=== PATIENT | male | born 1940 | race Hispanic/Latino ===

== ENCOUNTER 2019-06-02 10:03 | Inpatient (IN) | payer MEDICARE ==
[~2019-06-02] VITALS: Ht 172.7 cm; Wt 93.5 kg
[2019-06-02] MEDS ORDERED: IBUPROFEN400 MG PO (10:09)
[2019-06-02] MEDS ORDERED: BACTRIM DS TAB1 EACH PO (10:09)
[2019-06-02] MEDS ORDERED: FLOMAX0.4 MG PO (10:09)
[2019-06-02] MEDS ORDERED: SODIUM CHLORIDE 0.9% 1000ML 1,000 ML IV STA (10:25)
[2019-06-02] MEDS ORDERED: PANTOPRAZOLE 40 MG 10ML VIAL IV STA (10:25)
[2019-06-02] MEDS ORDERED: ONDANSETRON HCL INJ 2MG/ML 2ML 2 MG/ML VIAL IV STA (10:25)
[2019-06-02] MEDS ORDERED: PIPER-TAZ 3.375 GM 50 ML IV ONE (10:45)
[2019-06-02] MEDS ORDERED: CEFTRIAXONE SOD 1 GM/NS 50 ML 50 ML IV ONE (10:45)
[2019-06-02 11:14] LABS: CLARITY,URINE CLEAR (CLEAR); COLOR,URINE YELLOW (YELLOW)
[2019-06-02 11:15] LABS: BILIRUBIN,URINE 1+ (NEGATIVE); KETONES,URINE NEGATIVE (NEGATIVE); LEUKOCYTE ESTERASE ,URINE SMALL (NEGATIVE); NITRITE,URINE NEGATIVE (NEGATIVE); PROTEIN,URINE DIPSTICK 1+ (NEGATIVE); URINE UROBILINOGEN 0.2 mg/dL (0.2 - 1)
[2019-06-02 11:22] LABS: BASOPHILS # (AUTO) 0.1 (0.0-0.1); BASOPHILS % 0.6 % (0.0-1.0); EOSINOPHILS # (AUTO) 0.1 (0.0-0.4); EOSINOPHILS % 1.7 % (0.0-6.0); HEMATOCRIT 39.8 % (38.2-49.6); LYMPHOCYTES # (AUTO) 0.9 (1.0-3.2); LYMPHOCYTES % 11.7 % (18.0-39.1); MEAN CORPUSCULAR HEMOGLOBIN 28.6 pg (28-32); MEAN CORPUSCULAR HGB CONC 35.2 g/dL (31-35); MEAN CORPUSCULAR VOLUME 81.4 fL (81-99); MONOCYTES # (AUTO) 0.7 (0.2-0.8); MONOCYTES % 8.5 % (4.4-11.3); NEUTROPHILS # (AUTO) 5.9 (2.1-6.9); NEUTROPHILS % 76.2 % (38.7-80.0); PLATELET COUNT 154 x10e3/uL (140-360); RED BLOOD COUNT 4.89 x10e6/uL (4.3-5.7); RED CELL DISTRIBUTION WIDTH 14.2 % (11.7-14.4)
[2019-06-02 11:32] LABS: EPITHELIAL CELLS,URINE FEW /LPF; RBC,URINE 0-5 /HPF (0-5)
[2019-06-02 11:35] LABS: INR 1.09; PROTHROMBIN TIME 14.8 seconds (11.9-14.5)
[2019-06-02 11:36] LABS: BACTERIA,URINE MODERATE /HPF; WBC,URINE (MAN) >50 /HPF (0-5)
[2019-06-02 11:41] LABS: ALANINE AMINOTRANSFERASE 32 IU/L (0-55); ALBUMIN 3.3 g/dL (3.5-5.0); ALBUMIN/GLOBULIN RATIO 0.8 (0.8-2.0); ALKALINE PHOSPHATASE 98 IU/L (40-150); BLOOD UREA NITROGEN 11 mg/dL (7-26); BUN/CREATININE RATIO 11 (6-25); CALCIUM 8.9 mg/dL (8.4-10.2); CARBON DIOXIDE 17 mmol/L (22-29); CHLORIDE 95 mmol/L (98-107); CREATINE KINASE 33 IU/L (30-200); EST GLOMERULAR FILTRATION RATE > 60 ML/MIN (60-); GLUCOSE 181 mg/dL (74-118); LIPASE 117 U/L (8-78); MAGNESIUM 1.4 MG/DL (1.3-2.1); SODIUM 127 mmol/L (136-145)
--- NOTE | 2019-06-02 12:07 | Diagnostic Imaging Report ---
Testicular ultrasound, 06/02/2019. History: Right testicular pain and swelling. Comparison: None available. Discussion: Evaluation of the scrotum was performed in the transverse and longitudinal planes. Color Doppler and spectral wave form analysis was performed bilaterally. The testes are normal in size and echogenicity bilaterally, measuring 3.3 x 2.0 x 2.1 cm on the right and 3.1 x 2.0 x 2.9 cm on the left. There is no evidence of a testicular mass. Normal and symmetrical flow is present within both testes. Large hydrocele is present on the right with diffuse low-level internal echoes. Small hydrocele is present on the left. There is no evidence of a varicocele. The epididymi are normal bilaterally. IMPRESSION: Large right and small left hydroceles. Normal appearance of the testes. Signed by: Kevin Santos on 06/02/2019 12:04 PM
--- NOTE | 2019-06-02 12:22 | Diagnostic Imaging Report ---
Chest, 1 view, 06/02/2019. History: Flulike symptoms. Comparison: None available. Findings: There is poor inspiration. The cardiomediastinal silhouette and pulmonary vasculature are within normal limits for a portable exam. There is no focal consolidation or pleural effusion. Linear opacities are present at the lung bases. There are no acute osseous or soft tissue abnormalities. Impression: Bibasilar atelectasis. Signed by: Kevin Santos on 06/02/2019 12:19 PM
[2019-06-02] MEDS ORDERED: ONDANSETRON HCL INJ 2MG/ML 2ML 2 MG/ML VIAL IV PRN (12:30)
[2019-06-02] MEDS ORDERED: SODIUM CHLORIDE 0.9% 1000ML 1,000 ML IV ONE (12:30)
[2019-06-02 13:32] LABS: EOSINOPHILS % (MANUAL) 1 % (0-7); LYMPHOCYTES % (MANUAL) 10 % (19-48); MONOCYTES % (MANUAL) 7 % (3.4-9.0); NEUTROPHILS % (MANUAL) 82 % (40-74)
--- NOTE | 2019-06-02 13:35 | NUR ---
FM/PT UPDATED PLAN OF CARE SEVERAL TIMES THROUGHOUT STAY. PT ASST TWICE WITH URINATION/URINAL. PT/FM WANTED WATER, WHEN BROUGHT, PT WAS EATING FOOD TRAY DAUGHTER BROUGHT HIM. 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 PT HAS HAD NO COMPLAINT OF NAUSEA OR VOMITING SINCE ARRIVAL TO ER.
--- OUTSIDE RECORDS SUMMARY | 2019-06-02 13:36 | XMS REPORT ---
Author Author [facility] Address Unknown Phone Unavailable Care Team Providers Care Broadcast Operations Manager Name Role Phone Ashley ANDRADE Unavailable Unavailable Problems This patient has no known problems. Allergies, Adverse Reactions, Alerts This patient has no known allergies or adverse reactions. Medications This patient has no known medications. Results Test Description Test Time Test Comments Text Results Atomic Results Result Comments CHEST SINGLE (PORTABLE) 2019-06-02 12:18:00 [place] [address] Patient Name: HUBERT RUSS MR #: [id number] : 1940 Age/Sex: 78/M Req #: [id number] Adm Physician: Ordered by: RENE ANDRADE MD Report #: [id number] Location: ER Room/Bed: Procedure: [id number] DX/CHEST SINGLE (PORTABLE) Exam Date: 06/02/19 Exam Time: 1124 REPORT STATUS: Signed Chest, 1 view, 06/02/2019. History: Flulike symptoms. Comparison: None available. Findings: There is poor inspiration. The cardiomediastinal silhouette and pulmonary vasculature are within normal limits for a portable exam. There is no focal consolidation or pleural effusion. Linear opacities are present at the lung bases. There are no acute osseous or soft tissue abnormalities. Impression: Bibasilar atelectasis. Signed by: Rojas Santos on 06/02/2019 12:19 PM Dictated By: ROJAS SANTOS MD 1219 Transcribed By: CHARLEY on 06/02/19 1219 COPY TO: RENE ANDRADE MD US TESTICULAR DOPPLER LTD 2019-06-02 12:02:00 [facility] [address] [place] [address] Patient Name: HUBERT RUSS MR #: [id number] : 1940 Age/Sex: 78/M Req #: [id number] Adm Physician: Ordered by: RENE ANDRADE MD Report #: [id number] Location: ER Room/Bed: Procedure: [id number] US/US TESTICULAR DOPPLER LTD Exam Date: 06/02/19 Exam Time: 1049 REPORT STATUS: Signed Testicular ultrasound, 06/02/2019. History: Right testicular pain and swelling. Comparison: None available. Discussion: Evaluation of the scrotum was performed in the transverse and longitudinal planes. Color Doppler and spectral wave form analysis was performed bilaterally. The testes are normal in size and echogenicity bilaterally, measuring 3.3 x 2.0 x 2.1 cm on the right and 3.1 x 2.0 x 2.9 cm on the left. There is no evidence of a testicular mass. Normal and symmetrical flow is present within both testes. Large hydrocele is present on the right with diffuse low-level internal echoes. Small hydrocele is present on the left. There is no evidence of a varicocele. The epididymi are normal bilaterally. IMPRESSION: Large right and small left hydroceles. Normal appearance of the testes. Signed by: Rojas Santos on 06/02/2019 12:04 PM Dictated By: ROJAS SANTOS MD 1204 Transcribed By: CHARLEY on 06/02/19 1204 COPY TO: RENE ANDRADE MD
[2019-06-02 14:51] VITALS: BP 192/91
[2019-06-02 15:30] VITALS: BP 192/91
[2019-06-02 15:34] VITALS: BP 192/91
[2019-06-02] MEDS ORDERED: PIPERACILLIN/TAZO 2.25 GM 50 ML IV SCH (18:00)
--- NOTE | 2019-06-02 19:11 | NUR ---
bedside shift report is complete. patient is resting comfortably in the bed. bed is in the lowest position and call light is within reach.
[2019-06-02 19:50] VITALS: BP 129/74
[2019-06-02 20:19] VITALS: BP 129/74
[2019-06-02] MEDS: PIPERACILLIN/TAZO 2.25 GM 50 ML IV SCH (20:52)
[2019-06-02 23:35] VITALS: BP 115/76
[2019-06-03] VITALS (7 sets, daily range): BP systolic 96–132; BP diastolic 50–73
[2019-06-03] MEDS: PIPERACILLIN/TAZO 2.25 GM 50 ML IV SCH ×3 (05:12→20:56)
--- NOTE | 2019-06-03 06:49 | NUR ---
patient is resting comfortably in bed. bed is in lowest position and call light is within reach.
[2019-06-03 07:23] LABS: BASOPHILS # (AUTO) 0.1 (0.0-0.1); BASOPHILS % 0.6 % (0.0-1.0); EOSINOPHILS # (AUTO) 0.1 (0.0-0.4); EOSINOPHILS % 0.6 % (0.0-6.0); HEMATOCRIT 36.4 % (38.2-49.6); HEMOGLOBIN 12.5 g/dL (14.0-18.0); LYMPHOCYTES # (AUTO) 1.9 (1.0-3.2); LYMPHOCYTES % 19.2 % (18.0-39.1); MEAN CORPUSCULAR HEMOGLOBIN 28.7 pg (28-32); MEAN CORPUSCULAR HGB CONC 34.3 g/dL (31-35); MEAN CORPUSCULAR VOLUME 83.5 fL (81-99); MONOCYTES # (AUTO) 1.1 (0.2-0.8); MONOCYTES % 10.9 % (4.4-11.3); NEUTROPHILS # (AUTO) 6.7 (2.1-6.9); PLATELET COUNT 156 x10e3/uL (140-360); RED BLOOD COUNT 4.36 x10e6/uL (4.3-5.7); RED CELL DISTRIBUTION WIDTH 14.5 % (11.7-14.4)
--- NOTE | 2019-06-03 07:23 | NUR ---
PATIENT IN BED RESTING WITH EYES CLOSED, NO DISTRESS NOTED. IV FLUID INFUSING ORDERED. BED IN LOWER POSITION, CALL LIGHT AT REACH. FAMILY MEMBER AT BED SIDE.
[2019-06-03 07:35] LABS: ALANINE AMINOTRANSFERASE 29 IU/L (0-55); ALBUMIN 2.9 g/dL (3.5-5.0); ALBUMIN/GLOBULIN RATIO 0.8 (0.8-2.0); ALKALINE PHOSPHATASE 79 IU/L (40-150); ANION GAP 14.6 mmol/L (8-16); BLOOD UREA NITROGEN 9 mg/dL (7-26); BUN/CREATININE RATIO 11 (6-25); CALCIUM 8.4 mg/dL (8.4-10.2); CARBON DIOXIDE 20 mmol/L (22-29); CHLORIDE 96 mmol/L (98-107); EST GLOMERULAR FILTRATION RATE > 60 ML/MIN (60-); GLUCOSE 136 mg/dL (74-118); POTASSIUM 3.6 mmol/L (3.5-5.1); SODIUM 127 mmol/L (136-145)
--- NOTE | 2019-06-03 11:23 | NUR ---
PATIENT NOTED WITH ELEVATED TEMPERATURE, MD NOTIFIED, NEW ORDER RECEIVED.
[2019-06-03] MEDS: ACETAMINOPHEN 325 MG TAB PO PRN ×2 (11:30→20:56)
--- NOTE | 2019-06-03 15:05 | NUR ---
MD IN TO SEE PATIENT. NOTIFIED OF ELEVATED TEMPERATURE, NEW ORDER RECEIVED.
--- NOTE | 2019-06-03 16:30 | NUR ---
PATIENT SITTING UP IN BED TALKING TO FAMILY MEMBER VISITING. SWELLING REMAINS TO SCROTUM, ELEVATED , DIAPER DRY. BED IN LOWER POSITION, CALL LIGHT AT REACH.
--- NOTE | 2019-06-03 19:11 | NUR ---
received report from day nurse. bedside shift report is complete. patient is resting in bed. bed is in lowest position and call light is within reach. will continue to monitor patient.
[2019-06-04] VITALS (7 sets, daily range): BP systolic 104–119; BP diastolic 55–63
[2019-06-04] MEDS: PIPERACILLIN/TAZO 2.25 GM 50 ML IV SCH ×3 (05:47→20:41)
--- NOTE | 2019-06-04 06:31 | NUR ---
patient is resting in bed. bed is in lowest position and call carrera is within reach.
[2019-06-04] MEDS ORDERED: HYDRALAZINE HCL 20 MG/ML VIAL IV PRN (07:00)
[2019-06-04] MEDS ORDERED: HYDROCODONE/APAP 5MG-325MG TAB PO PRN (07:00)
[2019-06-04 07:04] LABS: BASOPHILS % 0.4 % (0.0-1.0); EOSINOPHILS # (AUTO) 0.4 (0.0-0.4); EOSINOPHILS % 3.6 % (0.0-6.0); HEMOGLOBIN 12.7 g/dL (14.0-18.0); LYMPHOCYTES # (AUTO) 2.2 (1.0-3.2); LYMPHOCYTES % 21.5 % (18.0-39.1); MEAN CORPUSCULAR HGB CONC 34.3 g/dL (31-35); MEAN CORPUSCULAR VOLUME 84.5 fL (81-99); MONOCYTES # (AUTO) 0.9 (0.2-0.8); MONOCYTES % 9.2 % (4.4-11.3); NEUTROPHILS # (AUTO) 6.6 (2.1-6.9); NEUTROPHILS % 64.6 % (38.7-80.0); PLATELET COUNT 154 x10e3/uL (140-360); RED BLOOD COUNT 4.38 x10e6/uL (4.3-5.7); RED CELL DISTRIBUTION WIDTH 14.5 % (11.7-14.4)
--- NOTE | 2019-06-04 07:15 | NUR ---
PATIENT IN BED RESTING WITH HEAD OF BED ELEVATED, NO DISTRESS NOTED. REDNESS AND SWELLING REMAINS TO SCROTUM, ELEVATED. BED IN LOWER POSITION, CALL LIGHT AT REACH.
[2019-06-04 07:24] LABS: ANION GAP 13.8 mmol/L (8-16); BLOOD UREA NITROGEN 8 mg/dL (7-26); BUN/CREATININE RATIO 11 (6-25); CALCIUM 8.4 mg/dL (8.4-10.2); CARBON DIOXIDE 22 mmol/L (22-29); CHLORIDE 98 mmol/L (98-107); CREATININE, SERUM 0.73 mg/dL (0.72-1.25); EST GLOMERULAR FILTRATION RATE > 60 ML/MIN (60-); GLUCOSE 124 mg/dL (74-118); POTASSIUM 3.8 mmol/L (3.5-5.1); SODIUM 130 mmol/L (136-145)
--- NOTE | 2019-06-04 15:33 | NUR ---
PATIENT IN BED WATCHING TV, NO COMPLAIN VOICED. CALL LIGHT AT REACH, FAMILY AT BED SIDE.
[2019-06-04] MEDS ORDERED: SODIUM CHLORIDE 0.9% 250ML 250 ML ONE (19:14)
[2019-06-04] MEDS: ACETAMINOPHEN 325 MG TAB PO PRN (19:25)
[2019-06-05] VITALS (7 sets, daily range): BP systolic 105–122; BP diastolic 58–66
[2019-06-05 04:39] LABS: BASOPHILS # (AUTO) 0.1 (0.0-0.1); BASOPHILS % 0.8 % (0.0-1.0); EOSINOPHILS # (AUTO) 0.5 (0.0-0.4); EOSINOPHILS % 5.5 % (0.0-6.0); HEMATOCRIT 37.7 % (38.2-49.6); LYMPHOCYTES # (AUTO) 2.5 (1.0-3.2); LYMPHOCYTES % 28.8 % (18.0-39.1); MEAN CORPUSCULAR HEMOGLOBIN 28.9 pg (28-32); MEAN CORPUSCULAR HGB CONC 34.5 g/dL (31-35); MEAN CORPUSCULAR VOLUME 83.8 fL (81-99); MONOCYTES # (AUTO) 0.8 (0.2-0.8); MONOCYTES % 8.9 % (4.4-11.3); NEUTROPHILS # (AUTO) 4.8 (2.1-6.9); PLATELET COUNT 174 x10e3/uL (140-360); RED CELL DISTRIBUTION WIDTH 14.3 % (11.7-14.4)
[2019-06-05 04:55] LABS: ANION GAP 15.7 mmol/L (8-16); BLOOD UREA NITROGEN 6 mg/dL (7-26); BUN/CREATININE RATIO 9 (6-25); CALCIUM 8.5 mg/dL (8.4-10.2); CARBON DIOXIDE 20 mmol/L (22-29); CHLORIDE 104 mmol/L (98-107); CREATININE, SERUM 0.67 mg/dL (0.72-1.25); EST GLOMERULAR FILTRATION RATE > 60 ML/MIN (60-); GLUCOSE 127 mg/dL (74-118); MAGNESIUM 1.9 MG/DL (1.3-2.1); POTASSIUM 3.7 mmol/L (3.5-5.1); SODIUM 136 mmol/L (136-145)
[2019-06-05] MEDS: PIPERACILLIN/TAZO 2.25 GM 50 ML IV SCH ×3 (06:09→21:03)
--- NOTE | 2019-06-05 07:03 | NUR ---
Bedside report and waling rounds completed with oncoming nurse. Patient in bed resting with call light within reach. No issues or distress noted.
--- NOTE | 2019-06-05 07:10 | NUR ---
PATIENT ASSISTED WITH URINAL, VOIDED 200CC OF CLEAR YELLOW URINE. REDNESS AND SWELLING TO SCROTUM, ELEVATED. BED IN LOWER POSITION, CALL LIGHT AT REACH.
--- NOTE | 2019-06-05 11:09 | NUR ---
PATIENT AMBULATED IN ROOM WITH PHYSICAL THERAPY, NO DISTRESS NOTED. BACK IN BED WITH CALL LIGHT AT REACH.
--- NOTE | 2019-06-05 13:44 | NUR ---
Discontinuing skilled PT services since patient is Mod I in functional mobility. Thank you. Addendum: 06/05/19 at 1345 by Edgardo evans PT Amended: Links added.
--- NOTE | 2019-06-05 15:20 | NUR ---
PATIENT ASSISTED WITH SHOWER, LINENS CHANGED. SITTING IN CHAIR TALKING TO FAMILY MEMBERS VISITING. CALL LIGHT AT REACH.
--- NOTE | 2019-06-05 19:00 | NUR ---
Bedside report and rounds completed. Patient in bed with family at bedside with call light within reach. No issues or concerns. Will continue to monitor closely.
[2019-06-06 00:05] VITALS: BP 115/58
[2019-06-06 05:34] VITALS: BP 106/56
[2019-06-06 06:06] LABS: BASOPHILS # (AUTO) 0.1 (0.0-0.1); BASOPHILS % 0.9 % (0.0-1.0); EOSINOPHILS # (AUTO) 0.4 (0.0-0.4); EOSINOPHILS % 5.9 % (0.0-6.0); HEMATOCRIT 38.6 % (38.2-49.6); HEMOGLOBIN 12.8 g/dL (14.0-18.0); LYMPHOCYTES # (AUTO) 2.5 (1.0-3.2); LYMPHOCYTES % 33.8 % (18.0-39.1); MEAN CORPUSCULAR HEMOGLOBIN 28.5 pg (28-32); MEAN CORPUSCULAR HGB CONC 33.2 g/dL (31-35); MONOCYTES # (AUTO) 0.7 (0.2-0.8); MONOCYTES % 8.7 % (4.4-11.3); NEUTROPHILS # (AUTO) 3.7 (2.1-6.9); NEUTROPHILS % 49.8 % (38.7-80.0); PLATELET COUNT 185 x10e3/uL (140-360); RED BLOOD COUNT 4.49 x10e6/uL (4.3-5.7); RED CELL DISTRIBUTION WIDTH 14.3 % (11.7-14.4)
[2019-06-06 06:31] LABS: ANION GAP 14.9 mmol/L (8-16); BLOOD UREA NITROGEN 7 mg/dL (7-26); BUN/CREATININE RATIO 10 (6-25); CALCIUM 8.6 mg/dL (8.4-10.2); CARBON DIOXIDE 23 mmol/L (22-29); CHLORIDE 103 mmol/L (98-107); CREATININE, SERUM 0.68 mg/dL (0.72-1.25); EST GLOMERULAR FILTRATION RATE > 60 ML/MIN (60-); GLUCOSE 121 mg/dL (74-118); MAGNESIUM 1.8 MG/DL (1.3-2.1); POTASSIUM 3.9 mmol/L (3.5-5.1); SODIUM 137 mmol/L (136-145)
[2019-06-06] MEDS: PIPERACILLIN/TAZO 2.25 GM 50 ML IV SCH (06:35)
--- NOTE | 2019-06-06 07:00 | NUR ---
Bedside report and rounds completed with oncoming nurse. Patient in bed resting, no issues or concerns. Call light within reach.
[2019-06-06 07:55] VITALS: BP 121/68
[2019-06-06 08:00] VITALS: BP 121/68
--- NOTE | 2019-06-06 10:40 | NUR ---
IMM LETTER EXPLAINED TO PT AND FAMILY. PT AND FAMILY VERBALIZED UNDERSTANDING. IMM LETTER SIGNED. COPY TO PT AND COPY TO CHART.
[2019-06-06] MEDS ORDERED: TYLENOL WITH C1 EACH PO (11:38)
[2019-06-06] MEDS ORDERED: LEVAQUIN500 MG PO (11:38)
[2019-06-06] MEDS ORDERED: ONDANSETRON HCL 4 MG ORAL DISINTEGRATING TAB PO PRN (15:45)
--- NOTE | 2019-06-07 03:58 | Discharge Summary ---
CONSULTING PHYSICIAN: Luan Reynolds MD, urologist. HOSPITAL COURSE: This is a 78-year-old male who got admitted with complaints of testicular pain. On arrival to the ER, there is no fever or chills reported. His lab review showed sodium of 127 for which he received IV fluids. The patient also received IV Zosyn. His urine culture is negative. The patient got consultation with urologist and got evaluated. Currently cleared for discharge on Levaquin for 14 days and Tylenol No. 3 for pain as needed. LABORATORY DATA: Labs from 06/06/2019, sodium 137, potassium 3.9, chloride 103, CO2 of 23, BUN 7, creatinine 0.68, glucose 121, WBC 7.8, hemoglobin 12.8, hematocrit 38.6, platelets 185. MEDICATIONS: He is going home on Levaquin for 14 days and Tylenol No. 3 for as needed for pain. PHYSICAL EXAMINATION: VITAL SIGNS: Temperature is 96.1, heart rate is 76, blood pressure is 121/68, respiratory rate is 20, and oxygen saturation is 96% on room air. GENERAL: No acute distress. NECK: Supple. HEENT: Moist mucous membranes. LUNGS: Clear to auscultation. CARDIOVASCULAR: Regular rate and rhythm. ABDOMEN: Soft and nontender. EXTREMITIES: With no edema. NEUROLOGICAL: Nonfocal. DIAGNOSES: 1. Right epididymo-orchitis. FOLLOWUP: 1. Follow up primary care physician in 1-2 weeks. 2. Follow up with Urology in 1-2 weeks. Dictated by Caprice Davalos NP MD NAYELI Ortiz/MALINDA /[id number]
--- NOTE | 2019-06-07 07:48 | Discharge Summary ---
CONSULTING PHYSICIAN: Luan Reynolds MD, urologist. CHIEF COMPLAINT: Hypernatremia, UTI, hydrocele, epididymo-orchitis. HOSPITAL COURSE: This is a 78-year-old male who got admitted with complaints of testicular pain DICTATION ENDS HERE Dictated by Caprice Davalos, SHIRRING TENDER MD NAYELI Ortiz/MALINDA /[id number]
== END 2019-06-06 15:34 | disposition home or self-care (01) | DRG 728 ==
LOC: ER 13:25 → ERHOLD 13:34 → OBSVTOIN 14:48 → MED/SURG3 14:49
PROVIDERS: ADMIT Internal Medicine; ATTEND Internal Medicine
DX: N45.3 Epididymo-orchitis (principal); E87.1 Hypo-osmolality and hyponatremia; N39.0 Urinary tract infection, site not specified; E66.9 Obesity, unspecified; Z68.31 Body mass index [BMI] 31.0-31.9, adult; N43.3 Hydrocele, unspecified; D64.9 Anemia, unspecified
CPT/HCPCS: 36415; 71045; 76870; 80048; 80053; 81001; 82550; 82553; 82948; 83690; 83735; 84484; 85025; 85610; 85730; 87040; 87086; 87400; 93005; 93976; 99285; J2405; J2543; J7030; J7050

== ENCOUNTER 2019-06-09 11:02 | Inpatient (IN) | payer MEDICARE ==
[~2019-06-09] VITALS: Ht 175.3 cm; Wt 96.1 kg
[~2019-06-09 11:02] MED LIST: BACTRIM DS TAB1 EACH PO; FLOMAX0.4 MG PO; IBUPROFEN400 MG PO; LEVAQUIN500 MG PO; TYLENOL WITH C1 EACH PO
--- OUTSIDE RECORDS SUMMARY | 2019-06-09 11:05 | XMS REPORT ---
Author Author [facility] Address Unknown Phone Unavailable Care Team Providers Care Nuclear Medicine Officer Name Role Phone Ashley ANDRADE Unavailable Unavailable Problems This patient has no known problems. Allergies, Adverse Reactions, Alerts This patient has no known allergies or adverse reactions. Medications This patient has no known medications. Encounters Start Date/Time End Date/Time Encounter Type Admission Type [facility]ending [facility] Care Department Encounter ID 2019-05-24 19:09:00 2019-05-24 19:09:00 Emergency E [facility] [id number] 2018-12-09 18:49:00 2018-12-09 18:49:00 Emergency E [facility] [id number] Results Test Description Test Time Test Comments Text Results Atomic Results Result Comments CHEST SINGLE (PORTABLE) 2019-06-02 12:18:00 [place] [address] Patient Name: HUBERT RUSS MR #: [id number] : 1940 Age/Sex: 78/M Req #: [id number] Adm Physician: Ordered by: RENE ANDRADE MD Report #: [id number] Location: ER Room/Bed: Procedure: [id number] DX/CHEST SINGLE (PORTABLE) Exam Date: 06/02/19 Exam [...] 12:19 PM Dictated By: ROJAS SANTOS MD 121 Transcribed By: CHARLEY on 06/02/19 1219 COPY TO: RENE ANDRADE MD US TESTICULAR DOPPLER LTD 2019-06-02 12:02:00 [place] [address] Patient Name: HUBERT RUSS MR #: [id number] : 1940 Age/Sex: 78/M Req #: [id number] Adm Physician: Ordered by: RENE ANDRADE MD Report #: [id number] Location: ER Room/Bed: Procedure: [id number] US/US TESTICULAR DOPPLER LTD Exam Date: 06/02/19 [...] 12:04 PM Dictated By: ROJAS SANTOS MD 120 Transcribed By: CHARLEY on 06/02/191203 COPY TO: RENE ANDRADE MD
[2019-06-09] MEDS ORDERED: SODIUM CHLORIDE 0.9% 500ML 500 ML IV ONE (11:45)
[2019-06-09] MEDS ORDERED: ONDANSETRON HCL INJ 2MG/ML 2ML 2 MG/ML VIAL IV STA (12:00)
[2019-06-09] MEDS ORDERED: MORPHINE SULFATE 2 MG/ML SYR 1ML IV STA (12:00)
[2019-06-09] MEDS ORDERED: PIPER-TAZ 3.375 GM 50 ML IV SCH (12:00)
[2019-06-09 12:24] LABS: BASOPHILS % 0.3 % (0.0-1.0); EOSINOPHILS % 0.3 % (0.0-6.0); HEMATOCRIT 38.1 % (38.2-49.6); LYMPHOCYTES # (AUTO) 0.8 (1.0-3.2); LYMPHOCYTES % 5.5 % (18.0-39.1); MEAN CORPUSCULAR HEMOGLOBIN 28.7 pg (28-32); MEAN CORPUSCULAR HGB CONC 34.1 g/dL (31-35); MEAN CORPUSCULAR VOLUME 84.1 fL (81-99); MONOCYTES # (AUTO) 0.6 (0.2-0.8); MONOCYTES % 4.6 % (4.4-11.3); NEUTROPHILS # (AUTO) 12.1 (2.1-6.9); PLATELET COUNT 244 x10e3/uL (140-360); RED BLOOD COUNT 4.53 x10e6/uL (4.3-5.7); RED CELL DISTRIBUTION WIDTH 14.3 % (11.7-14.4)
[2019-06-09 12:37] LABS: INR 1.19; PROTHROMBIN TIME 15.9 seconds (11.9-14.5)
--- NOTE | 2019-06-09 12:38 | Diagnostic Imaging Report ---
Examination: Single AP view of the chest. COMPARISON: June 02 2019 INDICATION: Fever, swollen testicle DISCUSSION: Lines/tubes: None. Lungs: Low lung volume with lung base atelectasis. Central venous congestion. Pleura: No pleural effusion or pneumothorax. Heart and mediastinum: Cardiac Bones and soft tissues: No acute bony abnormalities. IMPRESSION: 1. Cardiomegaly with central venous congestion and low lung volume Signed by: Dr. Juan James M.D. on 06/09/2019 12:35 PM
[2019-06-09] MEDS ORDERED: MORPHINE SULFATE 2 MG/ML SYR 1ML IV PRN (12:45)
[2019-06-09] MEDS ORDERED: ONDANSETRON HCL INJ 2MG/ML 2ML 2 MG/ML VIAL IV PRN (12:45)
[2019-06-09 12:50] LABS: ALANINE AMINOTRANSFERASE 34 IU/L (0-55); ALBUMIN 2.7 g/dL (3.5-5.0); ALBUMIN/GLOBULIN RATIO 0.7 (0.8-2.0); ALKALINE PHOSPHATASE 134 IU/L (40-150); BLOOD UREA NITROGEN 12 mg/dL (7-26); BUN/CREATININE RATIO 14 (6-25); CALCIUM 9.3 mg/dL (8.4-10.2); CARBON DIOXIDE 20 mmol/L (22-29); CHLORIDE 98 mmol/L (98-107); CREATINE KINASE 14 IU/L (30-200); CREATININE, SERUM 0.85 mg/dL (0.72-1.25); EST GLOMERULAR FILTRATION RATE > 60 ML/MIN (60-); GLUCOSE 128 mg/dL (74-118); MAGNESIUM 1.5 MG/DL (1.3-2.1); SODIUM 130 mmol/L (136-145)
[2019-06-09 13:24] LABS: LYMPHOCYTES % (MANUAL) 7 % (19-48); MONOCYTES % (MANUAL) 4 % (3.4-9.0); NEUTROPHILS % (MANUAL) 89 % (40-74); PLATELET ESTIMATE ADEQUATE; PLATELET MORPHOLOGY COMMENT NORMAL; RBC MORPHOLOGY COMMENT NORMAL
--- NOTE | 2019-06-09 13:52 | Diagnostic Imaging Report ---
Testicular ultrasound, with Doppler examination. History: ] Pain and swelling. Comparison: 06/02/2019. Discussion: Evaluation of the scrotum was performed in the transverse and longitudinal planes. Color Doppler and spectral wave form analysis was performed bilaterally. The testes are normal in size and echogenicity bilaterally, measuring 4.2 x 2.2 x 2.4 cm on the right and 3.3 x 1.7 x 2.7 cm on the left. There is no evidence of a testicular mass. Normal and symmetrical flow is present within both testes. A large hydrocele is again seen on the right containing diffuse low level internal echoes. Small simple hydrocele is noted on the left. The left epididymal head is visualized and is normal. Right epididymis could not be visualized. IMPRESSION: 1. Large complex right hydrocele and small left hydrocele without change. 2. Normal bilateral testis. Signed by: Kevin Santos on 06/09/2019 1:49 PM
[2019-06-09 14:12] LABS: CLARITY,URINE CLEAR (CLEAR); COLOR,URINE YELLOW (YELLOW); KETONES,URINE NEGATIVE (NEGATIVE); LEUKOCYTE ESTERASE ,URINE SMALL (NEGATIVE); NITRITE,URINE NEGATIVE (NEGATIVE); PROTEIN,URINE DIPSTICK NEGATIVE (NEGATIVE)
[2019-06-09 14:13] LABS: BILIRUBIN,URINE SMALL (NEGATIVE)
[2019-06-09 14:31] LABS: AMORPHOUS SEDIMENT,URINE MODERATE (FEW); BACTERIA,URINE MODERATE /HPF; EPITHELIAL CELLS,URINE MODERATE /LPF
[2019-06-09] MEDS: SODIUM CHLORIDE 0.9% 1000ML 1,000 ML IV SCH (15:11)
--- NOTE | 2019-06-09 16:15 | NUR ---
ARRIVED VIA WC FROM ER, AA&OX3, RA, SCROTAL PAIN 06/05 AT THIS TIME, ORIENTED TO ROOM AND CALL LIGHT SYSTEM, CALL LIGHT WITHIN REACH, AT SIDE
[2019-06-09 16:26] VITALS: BP 123/58
[2019-06-09 16:40] VITALS: BP 123/58
[2019-06-09] MEDS ORDERED: ACETAMINOPHEN/CODEINE 300MG - 30MG TAB PO PRN (17:45)
[2019-06-09] MEDS ORDERED: HYDRALAZINE HCL 20 MG/ML VIAL IV PRN (17:45)
[2019-06-09] MEDS ORDERED: ACETAMINOPHEN 325 MG TAB PO PRN (17:45)
--- NOTE | 2019-06-09 18:50 | NUR ---
WITH STANDBY ASSIST, PT OOB TO BR, PT HAD BM, STANDBY ASSIST BACK TO BED BY PCT
[2019-06-09 20:00] VITALS: BP 131/63
[2019-06-09] MEDS: PIPER-TAZ 3.375 GM 50 ML IV SCH (20:00)
[2019-06-09] MEDS ORDERED: ACETAMINOPHEN 1000 MG/100 ML IV ONE (20:13)
[2019-06-09] MEDS ORDERED: SEVOFLURANE INHAL SOLN 250 ML PEN BTL ONE (20:13)
[2019-06-09 21:26] LABS: CREATINE KINASE MB 0.4 ng/mL (0-5.0)
[2019-06-09 21:56] VITALS: BP 123/58
[2019-06-10] VITALS: BP 112/58
[2019-06-10] MEDS: PIPER-TAZ 3.375 GM 50 ML IV SCH ×3 (04:00→20:05)
[2019-06-10] MEDS: SODIUM CHLORIDE 0.9% 1000ML 1,000 ML IV SCH (04:22)
[2019-06-10 05:53] LABS: BASOPHILS % 0.2 % (0.0-1.0); EOSINOPHILS # (AUTO) 0.2 (0.0-0.4); HEMOGLOBIN 11.7 g/dL (14.0-18.0); LYMPHOCYTES # (AUTO) 1.6 (1.0-3.2); LYMPHOCYTES % 14.2 % (18.0-39.1); MEAN CORPUSCULAR HEMOGLOBIN 28.1 pg (28-32); MEAN CORPUSCULAR HGB CONC 33.4 g/dL (31-35); MEAN CORPUSCULAR VOLUME 84.1 fL (81-99); MONOCYTES % 9.1 % (4.4-11.3); NEUTROPHILS # (AUTO) 8.2 (2.1-6.9); NEUTROPHILS % 72.9 % (38.7-80.0); PLATELET COUNT 202 x10e3/uL (140-360); RED BLOOD COUNT 4.16 x10e6/uL (4.3-5.7); RED CELL DISTRIBUTION WIDTH 14.6 % (11.7-14.4)
[2019-06-10 05:58] LABS: CREATINE KINASE MB 0.3 ng/mL (0-5.0)
[2019-06-10 06:20] LABS: ALANINE AMINOTRANSFERASE 27 IU/L (0-55); ALBUMIN 2.4 g/dL (3.5-5.0); ALBUMIN/GLOBULIN RATIO 0.6 (0.8-2.0); ALKALINE PHOSPHATASE 114 IU/L (40-150); ANION GAP 14.7 mmol/L (8-16); BLOOD UREA NITROGEN 8 mg/dL (7-26); BUN/CREATININE RATIO 11 (6-25); CALCIUM 8.7 mg/dL (8.4-10.2); CARBON DIOXIDE 19 mmol/L (22-29); CHLORIDE 102 mmol/L (98-107); CREATININE, SERUM 0.71 mg/dL (0.72-1.25); EST GLOMERULAR FILTRATION RATE > 60 ML/MIN (60-); GLUCOSE 114 mg/dL (74-118); POTASSIUM 3.7 mmol/L (3.5-5.1); SODIUM 132 mmol/L (136-145)
[2019-06-10 08:18] VITALS: BP 110/56
[2019-06-10] MEDS: FAMOTIDINE 20 MG TAB PO SCH ×2 (08:30→16:30)
[2019-06-10 12:10] VITALS: BP 129/64
--- NOTE | 2019-06-10 15:00 | NUR ---
VOICES NO NEEDS AT THIS TIME, CALL LIGHT WITHIN REACH
[2019-06-10 16:47] VITALS: BP 117/61
[2019-06-10] MEDS: TAMSULOSIN HCL 0.4 MG CAP PO SCH (17:00)
--- NOTE | 2019-06-10 19:20 | NUR ---
NO CHANGE IN CONDITION, CALL LIGHT WITHIN REACH
[2019-06-10 20:00] VITALS: BP 141/80
[2019-06-10 21:17] VITALS: BP 141/80
[2019-06-11] VITALS: BP 134/60
[2019-06-11] MEDS: PIPER-TAZ 3.375 GM 50 ML IV SCH ×3 (03:31→20:05)
[2019-06-11 04:00] VITALS: BP 127/73
[2019-06-11 04:33] LABS: BASOPHILS % 0.6 % (0.0-1.0); EOSINOPHILS # (AUTO) 0.3 (0.0-0.4); EOSINOPHILS % 4.2 % (0.0-6.0); HEMATOCRIT 32.9 % (38.2-49.6); LYMPHOCYTES # (AUTO) 1.8 (1.0-3.2); LYMPHOCYTES % 25.7 % (18.0-39.1); MEAN CORPUSCULAR HEMOGLOBIN 28.6 pg (28-32); MEAN CORPUSCULAR HGB CONC 33.4 g/dL (31-35); MEAN CORPUSCULAR VOLUME 85.7 fL (81-99); MONOCYTES # (AUTO) 0.7 (0.2-0.8); MONOCYTES % 9.1 % (4.4-11.3); NEUTROPHILS # (AUTO) 4.2 (2.1-6.9); NEUTROPHILS % 58.7 % (38.7-80.0); PLATELET COUNT 196 x10e3/uL (140-360); RED BLOOD COUNT 3.84 x10e6/uL (4.3-5.7); RED CELL DISTRIBUTION WIDTH 14.6 % (11.7-14.4)
[2019-06-11 05:06] LABS: ANION GAP 12.7 mmol/L (8-16); BLOOD UREA NITROGEN 7 mg/dL (7-26); BUN/CREATININE RATIO 10 (6-25); CALCIUM 8.4 mg/dL (8.4-10.2); CARBON DIOXIDE 21 mmol/L (22-29); CHLORIDE 108 mmol/L (98-107); CREATININE, SERUM 0.68 mg/dL (0.72-1.25); EST GLOMERULAR FILTRATION RATE > 60 ML/MIN (60-); GLUCOSE 116 mg/dL (74-118); POTASSIUM 3.7 mmol/L (3.5-5.1); SODIUM 138 mmol/L (136-145)
[2019-06-11] MEDS: FAMOTIDINE 20 MG TAB PO SCH ×2 (07:30→16:30)
[2019-06-11 08:22] VITALS: BP 138/79
[2019-06-11] MEDS ORDERED: FENTANYL CITRATE/PF 100MCG/2 ML INJ ONE (09:09)
[2019-06-11] MEDS ORDERED: BUPIVACAINE HCL 0.5% INJ 30 ML VIAL INJ ONE (09:21)
[2019-06-11] MEDS ORDERED: LIDOCAINE HCL 1% LOCAL INJ 20 ML VIAL ONE (09:21)
--- NOTE | 2019-06-11 09:46 | NUR ---
WHEELED OFF UNIT VIA STRETCHER FOR OR, NO CHANGE IN CONDITION, FAMILY AT SIDE Addendum: 06/11/19 at 0947 by Stephanie Delgado RN 0900
[2019-06-11] MEDS: TAMSULOSIN HCL 0.4 MG CAP PO SCH (17:00)
[2019-06-11 17:06] VITALS: BP 129/72
[2019-06-11 20:00] VITALS: BP 121/73
--- NOTE | 2019-06-11 21:33 | Operative Report ---
DATE OF PROCEDURE: 06/11/2019 SURGEON: Luan Reynolds MD PREOPERATIVE DIAGNOSES: 1. Large and dense right hydrocele with diffuse debris on ultrasound. 2. Painful right epididymo-orchitis that has failed both intravenous and oral antibiotics and both inpatient and outpatient management. POSTOPERATIVE DIAGNOSES: 1. Large and dense right hydrocele with diffuse debris on ultrasound. 2. Painful right epididymo-orchitis that has failed both intravenous and oral antibiotics and both inpatient and outpatient management. OPERATIONS PERFORMED: 1. Right hydrocelectomy. 2. Right orchiectomy. 3. Regional nerve block (separate procedure performed for postoperative pain control and not required for the actual performance of the surgery, which was done under general anesthesia). ANESTHESIA: General. COMPLICATIONS: None. CLINICAL SUMMARY: Yfn Braden is a 78-year-old man with the above preoperative diagnoses. He is brought for an orchiectomy and hydrocelectomy. He is aware of the risks of bleeding, infection, injury to adjacent structures, the fact that he will be missing his right testicle. He understands the risks of hypogonadism and infertility. The patient is not interested in fertility at this time nor in the future. PROCEDURE IN DETAIL: Informed consent was verified. Yfn Braden was properly identified, taken to the operating room, placed on the operating table in supine position. Anesthesia was uneventfully begun. The patient's genitalia were shaved, prepared, and draped in usual sterile fashion. Right scrotal incision was made and carried into the right scrotal neck. We dissected down the layers of the scrotum until we reached the tunica vaginalis. We then dissected the tunica vaginalis and its contents free from the remainder of the scrotum. Electrocautery was utilized to achieve hemostasis throughout the procedure. We then followed the spermatic cord proximally. We then did a regional nerve block. Marcaine without epinephrine was utilized to infiltrate the spermatic cord proximal to the region of dissection and into the inguinal canal. This was done for postoperative pain control and not required for the actual performance of surgery, which was done under general anesthesia. The spermatic cord was then divided into 2 separate capsules. This was done just outside the external inguinal ring. Each pedicle was then suture ligated with #1 Vicryl suture and then ligated more proximally with a #1 Vicryl tie. Once this was performed, the port was divided. The specimen was placed on the back table. Copious irrigation was performed. We verified hemostasis. Marcaine was utilized to infiltrate circumferentially around the incision. Through a separate stab wound in the dependent most portion of the right hemiscrotum, a Henderson drain was placed and secured to the skin with chromic suture. After copiously irrigating again, the patient's incision was then approximated in 2 layers utilizing 3-0 chromic suture in interrupted fashion. Sterile dressings were applied and held in place with undergarment and the patient was uneventfully reversed from anesthesia and taken to the recovery room in stable condition. There were no complications during the procedure. The patient tolerated the procedure well. Sponge, needle, and instrument count was correct x2 at the end of the case. At the end of the case, estimated blood loss was minimal. On the back table, we opened the hydrocele sac. It was a dense hydrocele sac and contained rather copious amount of fluid, which I estimated approximately 500 mL. The fluid was purulent appearing and was yellow in nature, but it was very cloudy. The fluid was sent for culture. We then divided the testicle. It was very small. There was purulence from the testicle as well. We obtained a swab culture of this portion as well. Plans will be leave the patient in the hospital on intravenous antibiotics and we will continue to monitor the patient and follow up on his cultures and manage his pain as needed. Luan Reynolds MD [place]/DEYSIL /[id number]
[2019-06-12] VITALS (8 sets, daily range): BP systolic 116–141; BP diastolic 62–83
--- NOTE | 2019-06-12 03:26 | NUR ---
CHANGED DRESSING TO SCROTUM AT THIS TIME.
[2019-06-12 03:41] LABS: BASOPHILS % 0.2 % (0.0-1.0); HEMATOCRIT 32.3 % (38.2-49.6); HEMOGLOBIN 11.1 g/dL (14.0-18.0); LYMPHOCYTES # (AUTO) 1.1 (1.0-3.2); LYMPHOCYTES % 11.9 % (18.0-39.1); MEAN CORPUSCULAR HEMOGLOBIN 29.1 pg (28-32); MEAN CORPUSCULAR HGB CONC 34.4 g/dL (31-35); MEAN CORPUSCULAR VOLUME 84.6 fL (81-99); MONOCYTES # (AUTO) 0.5 (0.2-0.8); MONOCYTES % 4.9 % (4.4-11.3); NEUTROPHILS # (AUTO) 7.8 (2.1-6.9); NEUTROPHILS % 82.2 % (38.7-80.0); PLATELET COUNT 209 x10e3/uL (140-360); RED BLOOD COUNT 3.82 x10e6/uL (4.3-5.7); RED CELL DISTRIBUTION WIDTH 14.3 % (11.7-14.4)
[2019-06-12 04:00] LABS: BLOOD UREA NITROGEN 9 mg/dL (7-26); BUN/CREATININE RATIO 14 (6-25); CALCIUM 8.5 mg/dL (8.4-10.2); CARBON DIOXIDE 21 mmol/L (22-29); CHLORIDE 105 mmol/L (98-107); CREATININE, SERUM 0.64 mg/dL (0.72-1.25); EST GLOMERULAR FILTRATION RATE > 60 ML/MIN (60-); GLUCOSE 158 mg/dL (74-118); SODIUM 136 mmol/L (136-145)
[2019-06-12] MEDS: PIPER-TAZ 3.375 GM 50 ML IV SCH ×3 (04:00→20:00)
--- NOTE | 2019-06-12 07:00 | NUR ---
RECEIVED BEDSIDE SHIFT REPORT FROM TERRY VELOZ. PT DENIES NEEDS AT THIS TIME.
[2019-06-12] MEDS: FAMOTIDINE 20 MG TAB PO SCH ×2 (07:46→17:17)
[2019-06-12] MEDS ORDERED: ONDANSETRON HCL 4 MG ORAL DISINTEGRATING TAB PO PRN (12:00)
[2019-06-12] MEDS: TAMSULOSIN HCL 0.4 MG CAP PO SCH (17:17)
--- NOTE | 2019-06-12 19:10 | NUR ---
BEDSIDE REPORT RECEIVED, DRESSING INTACT, NO DRAINAGE NOTED, ALL NEEDS MET AT THIS TIME, CALL LIGHT IN REACH
--- NOTE | 2019-06-12 20:20 | NUR ---
INITIAL ASSESSMENT COMPLETE, NO PAIN NOTED, IV INTACT, IV KVO, VS WNL, URINAL AT BEDSIDE, CALL LIGHT IN REACH, WILL CONTINUE TO MONITOR
[2019-06-13] VITALS: BP 123/58
[2019-06-13 04:00] VITALS: BP 106/57
[2019-06-13] MEDS: PIPER-TAZ 3.375 GM 50 ML IV SCH (04:00)
[2019-06-13 05:59] LABS: BASOPHILS # (AUTO) 0.1 (0.0-0.1); BASOPHILS % 0.6 % (0.0-1.0); EOSINOPHILS # (AUTO) 0.1 (0.0-0.4); EOSINOPHILS % 1.3 % (0.0-6.0); HEMOGLOBIN 11.7 g/dL (14.0-18.0); LYMPHOCYTES # (AUTO) 2.9 (1.0-3.2); LYMPHOCYTES % 34.7 % (18.0-39.1); MEAN CORPUSCULAR HEMOGLOBIN 27.9 pg (28-32); MEAN CORPUSCULAR HGB CONC 32.5 g/dL (31-35); MEAN CORPUSCULAR VOLUME 85.7 fL (81-99); MONOCYTES # (AUTO) 0.6 (0.2-0.8); MONOCYTES % 6.6 % (4.4-11.3); NEUTROPHILS # (AUTO) 4.6 (2.1-6.9); NEUTROPHILS % 55.7 % (38.7-80.0); PLATELET COUNT 233 x10e3/uL (140-360); RED CELL DISTRIBUTION WIDTH 14.2 % (11.7-14.4)
[2019-06-13 06:12] LABS: BLOOD UREA NITROGEN 9 mg/dL (7-26); BUN/CREATININE RATIO 12 (6-25); CALCIUM 8.7 mg/dL (8.4-10.2); CARBON DIOXIDE 24 mmol/L (22-29); CHLORIDE 109 mmol/L (98-107); CREATININE, SERUM 0.74 mg/dL (0.72-1.25); EST GLOMERULAR FILTRATION RATE > 60 ML/MIN (60-); GLUCOSE 103 mg/dL (74-118); SODIUM 142 mmol/L (136-145)
--- NOTE | 2019-06-13 07:00 | NUR ---
RECEIVED BEDSIDE SHIFT REPORT FROM KAM VELOZ. PT DENIES NEEDS AT THIS TIME.
[2019-06-13 08:49] VITALS: BP 120/71
[2019-06-13] MEDS: FAMOTIDINE 20 MG TAB PO SCH (09:02)
[2019-06-13 09:27] VITALS: BP 120/71
[2019-06-13] MEDS ORDERED: BACTRIM DS TAB1 EACH PO (10:22)
[2019-06-13] MEDS ORDERED: TYLENOL # 31 EA PO (10:22)
[2019-06-13] MEDS ORDERED: BACTRIM 400-801 EACH PO (10:39)
[2019-06-13 12:06] VITALS: BP 159/79
--- NOTE | 2019-06-13 12:37 | NUR ---
Discontinuing PT services since patient is Mod I in functional mobility. Thank you Addendum: 06/13/19 at 1238 by Edgardo evans PT Amended: Links added.
--- NOTE | 2019-06-13 16:03 | Discharge Summary ---
CONSULTING PHYSICIANS: Dr. Luan Reynolds with Urology. PERTINENT HISTORY AND PHYSICAL FINDINGS AND CHIEF COMPLAINT: Testicular swelling. HISTORY OF PRESENT ILLNESS: The patient is a 78-year-old male, who was admitted with complaints of testicular swelling for a few days prior to admission. He was discharged on 06/06/2019 with resolved epididymal orchitis. Once he was sent home, the swelling began again. He denied dysuria and hematuria on admission. PAST MEDICAL HISTORY: Includes BPH. PAST SURGICAL HISTORY: Blood clot removed from the brain. FAMILY HISTORY: Noncontributory. SOCIAL HISTORY: Noncontributory. ALLERGIES: NO KNOWN ALLERGIES. ADMITTING DIAGNOSES: 1. Right epididymal orchitis/right hydrocele. 2. Urinary tract infection with sepsis. 3. Benign prostatic hypertrophy. 4. Obesity with BMI 31. Final urine culture collected on June 09 showed no growth after 36-48 hours. Wound culture preliminary report show no growth after two days. No anaerobes today. Both blood cultures show no growth after 72 hours. Admitting WBC 13.91, hemoglobin 13, hematocrit 30.1, platelets 244. Sodium 130, glucose 128. Troponin I 0.015 and trend was negative. Initial urinalysis showed urobilinogen 4.0, WBC 6-10, amorphous sediment, urine bacteria moderate. Testicular ultrasound obtained on June 09 showed large complex right hydrocele and small left hydrocele without change. Normal bilateral testes. Chest x-ray showed cardiomegaly with central venous congestion and low lung volume. ECG done on June 09 showed normal sinus rhythm with a heart rate of 87, prolonged QT and QTc, H and H the patient is expected to have a radical orchiectomy per Urology soon. Scrotum was elevated. He did have a procedure by Urology, right hydrocelectomy and right orchiectomy which showed cloudy hydrocele fluid, very large, intense. He has a Rolly drain, which is to be removed by his granddaughter on Wednesday. Apparently, she is a certified athletic trainer and used to work for Dr. Reynolds. Dressing to be changed to Rolly drain b.i.d. Granddaughter is at bedside and we had this discussion. She understands completely and has no questions. The patient will be sent home on Tylenol No.3 with codeine 1 tablet q.6 hours p.r.n. for pain, quantity 30, as well as Bactrim single strength one p.o. b.i.d., quantity 14, which was written by Dr. Reynolds. Continue regular diet. Activity as tolerated. The patient to be ambulated prior to leaving. PHYSICAL EXAMINATION: GENERAL: Ate breakfast well and generally supine. Denies pain. LUNGS: Clear to auscultation. HEENT: Extraocular eye movements intact. NECK: Supple. HEART: Regular rate and rhythm. No murmur. ABDOMEN: Bowel sounds positive. Soft, nontender. EXTREMITIES: Without pitting edema. No clubbing, cyanosis. No signs or symptoms of DVT. NEUROLOGIC: GCS 15. Nonfocal. Dictated by Alverto George, SHANTHI Félix Singh MD HWP/MODL /[id number]
== END 2019-06-13 12:43 | disposition home or self-care (01) | DRG 854 ==
LOC: ER 11:02 → ERHOLD 12:46 → MED/SURG 15:26
PROVIDERS: ADMIT Internal Medicine; ATTEND Internal Medicine
PROC: 0VT90ZZ Resection of Right Testis, Open Approach (ICD-10-PCS; 2019-06-11)
PROC: 0VB60ZZ Excision of Right Tunica Vaginalis, Open Approach (ICD-10-PCS; 2019-06-11)
PROC: 0VBF0ZZ Excision of Right Spermatic Cord, Open Approach (ICD-10-PCS; principal; 2019-06-11 10:50)
DX: A41.9 Sepsis, unspecified organism (principal); N39.0 Urinary tract infection, site not specified; N45.3 Epididymo-orchitis; N43.3 Hydrocele, unspecified; E66.9 Obesity, unspecified; Z68.31 Body mass index [BMI] 31.0-31.9, adult; N40.0 Benign prostatic hyperplasia without lower urinary tract symptoms
CPT/HCPCS: 36415; 71045; 76870; 80048; 80053; 81001; 82550; 82553; 83735; 84484; 85025; 85610; 85730; 87040; 87071; 87075; 87086; 87205; 88302; 88305; 93005; 93976; 99284; J2001; J2270; J2405; J2543; J3010; J7030; J7040